=== PATIENT | female | born 1965 | race American Indian/Alaskan Native ===

== ENCOUNTER 2017-05-19 08:56 | Outpatient (CLI) | payer OTHER ==
--- NOTE | 2017-05-19 11:00 | Mammography Report ---
Bilateral mammogram and bilateral breast ultrasound: The patient presents with a persistent palpable nodule in the lateral left breast and her physician feeling bilateral lumps. A marker was placed over the area identified by the patient in the left breast. Routine views were obtained in addition to spot compression imaging over the marker region. Comparison is made to a prior exam in April 2016. There is a heterogeneously dense fibroglandular pattern which is generally symmetric in distribution bilaterally. Adjacent to the marker there is a somewhat ill-defined area of focal density less discrete than seen on prior exam. A couple of smaller partially circumscribed nodular densities aren't also identified adjacent to this larger finding. In the deep right breast there is a circumscribed and somewhat elongated density. This is better defined than seen on prior study. The breast pattern not otherwise changed bilaterally. Ultrasound imaging of the left breast demonstrates a dominant echolucent well-defined mass in the 3:30 position 6 initially the nipple consistent with the palpable finding. Adjacent to this are 2 smaller echolucent masses measuring under 1 cm each. In the 1:00 there is also a 6 mm echolucent mass. No solid masses. In the right breast 6:00 there is an elongated echolucent mass measuring 12 mm. No solid masses. CAD used. Impressions: 1. Multiple left breast cysts the largest of which corresponds to palpable mammogram finding but smaller than on prior exam in 2016. No new masses. No solid masses identified. 2. Right breast cyst better defined on mammography than on prior study. No solid masses identified. Recommendations: Annual mammogram followup. BI-RADS CATEGORY: 2 = Benign ACR BI-RADS MAMMOGRAPHIC CODES: 0 = Needs additional imaging evaluation; 1 = Negative; 2 = Benign; 3 = Probably benign; 4 = Suspicious; 5 = Malignant; 6 = Known biopsy-proven malignancy COMMENT: 1. Dense breast tissue, i.e., adenosis, fibrocystic changes, etc., may obscure an underlying neoplasm. 2. Approximately 10% of cancers are not detected with mammography. 3. A negative mammography report should not delay biopsy if a clinically suspicious mass is present.
== END 2017-05-19 08:57 | disposition home or self-care (01) ==
LOC: MAMMO 08:56
PROVIDERS: ATTEND Obstetrics & Gynecology Gynecology
DX: N60.01 Solitary cyst of right breast (principal); N60.02 Solitary cyst of left breast; N63 Unspecified lump in breast
CPT/HCPCS: 76642; G0204; 77066

== ENCOUNTER 2017-06-21 07:43 | Outpatient (CLI) | payer OTHER ==
--- NOTE | 2017-06-21 09:38 | Procedure Note ---
Date of procedure: 06/21/17 Pre-op diagnosis: lt. breast mass Post-op diagnosis: same Procedure: u/s guided asp/bx Findings: no fluid, solid Anesthesia: local Surgeon: KOBY PITTS Estimated blood loss: none Pathology: list Specimen disposition: to lab (lt breast tissue) Condition: stable Disposition: same day
--- NOTE | 2017-06-21 09:38 | History and Physical Report ---
History of Present Illness Date of examination: 06/21/17 Chief complaint: painful mass 3:00 Medications and Allergies Allergies Allergy/AdvReac Type Severity Reaction Status Date / Time Sulfa (Sulfonamide Allergy Itching Unverified 06/21/17 07:44 Antibiotics)
--- NOTE | 2017-06-21 11:30 | Ultrasound Report ---
Ultrasound guided left breast aspiration/biopsy, marker placement, left mammogram: The patient presents with a history of painful mass identified in the lateral left breast. Prior ultrasound demonstrated what appeared to be a dominant cyst in this region. Multiple smaller hypoechoic/cysts noted. The skin was cleansed and local anesthesia applied. Under ultrasound guidance a 21-gauge needle into the lesion with minimal withdrawal of thick appearing fluid. An 18-gauge needle was then utilized with no additional production of fluid. The nodule became somewhat more hypoechoic with slight reduction in size. Additional local anesthesia was applied. A 13-gauge sheath was then introduced through which a 14-gauge disposable barred biopsy spring-loaded guide was used to take several sections through the lesion. A marker was left in place and ultrasound guidance. The entrance site was bandaged. A followup two-view mammogram confirmed positioning of the marker. The marker is consistent with her palpable discomfort based on her May 19 mammogram. There were no procedure complications however the patient was quite tender and uncomfortable prior to and following the procedure. Followup instructions were verbally given to the patient.
== END 2017-06-21 07:44 | disposition home or self-care (01) ==
LOC: US 07:43
PROVIDERS: ATTEND Obstetrics & Gynecology Gynecology
DX: N60.02 Solitary cyst of left breast (principal); N63.20 Unspecified lump in the left breast, unspecified quadrant
CPT/HCPCS: 19083; 88305; G0206

== ENCOUNTER 2017-07-22 19:43 | Emergency (ER) | payer OTHER ==
[2017-07-22] MEDS ORDERED: MOTRIN PO ONE (20:49)
[2017-07-22] MEDS ORDERED: TYLENOL #3 PO ONE (20:58)
--- NOTE | 2017-07-22 20:58 | Emergency Department Report ---
- General Chief Complaint: Upper Respiratory Infection Stated Complaint: SOB; BODYACHES Time Seen by Provider: 07/22/17 20:38 Source: patient Mode of arrival: Ambulatory Limitations: No Limitations - History of Present Illness Initial Comments: 51-year-old female past medical history hysterectomy presents with complaint of 3 days of worsening cough. Patient also complaining of some body aches runny nose and some sore throat. Patient is awake alert and oriented 3 no audible wheezing stridor or rhonchi. No retractions. Patient states she may have been exposed to someone who was sick with a cold recently. Patient states that cough is productive of greenish yellow sputum. States she was taking NyQuil and DayQuil with minimal relief of her symptoms. denies being a smoker.. MD Complaint: fever, cough Onset/Timin -: days(s) Severity: moderate Consistency: intermittent Improves With: OTC cold medicine Associated Symptoms: cough Treatments Prior to Arrival: none - Related Data Previous Rx's Medication Instructions Recorded Last Taken Type ALBUTEROL Inhaler [ProAir HFA 2 puff IH QID PRN #1 inhalation 07/22/17 Unknown Rx Inhaler] Azithromycin [Zithromax Z-ANDREA] 250 mg PO QDAY #6 tablet 07/22/17 Unknown Rx Codeine Sulfate 15 mg PO Q4H PRN #4 tablet 07/22/17 Unknown Rx Naproxen 250 mg PO BID PRN #30 tablet 07/22/17 Unknown Rx Allergies Allergy/AdvReac Type Severity Reaction Status Date / Time Sulfa (Sulfonamide Allergy Itching Verified 07/22/17 21:16 Antibiotics) ED Review of Systems ROS: Stated complaint: SOB; BODYACHES Other details as noted in HPI Constitutional: denies: chills, fever Eyes: denies: eye pain, eye discharge, vision change ENT: denies: ear pain, throat pain Respiratory: cough. denies: shortness of breath, wheezing Cardiovascular: denies: chest pain, palpitations Endocrine: no symptoms reported Gastrointestinal: denies: abdominal pain, nausea, diarrhea Genitourinary: denies: urgency, dysuria, discharge Musculoskeletal: denies: back pain, joint swelling, arthralgia Skin: denies: rash, lesions Neurological: denies: headache, weakness, paresthesias Psychiatric: denies: anxiety, depression Hematological/Lymphatic: denies: easy bleeding, easy bruising ED Past Medical Hx - Past Medical History Previous Medical History?: No - Surgical History Past Surgical History?: Yes Additional Surgical History: hysterectomy - Social History Smoking Status: Never Smoker Substance Use Type: None - Medications Home Medications: Home Medications Medication Instructions Recorded Confirmed Last Taken Type ALBUTEROL Inhaler [ProAir HFA 2 puff IH QID PRN #1 inhalation 07/22/17 Unknown Rx Inhaler] Azithromycin [Zithromax Z-ANDREA] 250 mg PO QDAY #6 tablet 07/22/17 Unknown Rx Codeine Sulfate 15 mg PO Q4H PRN #4 tablet 07/22/17 Unknown Rx Naproxen 250 mg PO BID PRN #30 tablet 07/22/17 Unknown Rx ED Physical Exam - General Limitations: No Limitations General appearance: alert, in no apparent distress - Head Head exam: Present: atraumatic, normocephalic - Eye Eye exam: Present: normal appearance, PERRL, EOMI - ENT ENT exam: Present: mucous membranes moist - Expanded ENT Exam Expanded Teeth exam: Present: normal inspection Throat exam: Positive: tonsillar erythema (minimal erythema and no [employer] no exudates bilaterally) - Neck Neck exam: Present: normal inspection, full ROM - Respiratory Respiratory exam: Present: normal lung sounds bilaterally. Absent: respiratory distress - Cardiovascular Cardiovascular Exam: Present: regular rate, normal rhythm. Absent: systolic murmur, diastolic murmur, rubs, gallop - GI/Abdominal GI/Abdominal exam: Present: soft, normal bowel sounds - Extremities Exam Extremities exam: Present: normal inspection - Back Exam Back exam: Present: normal inspection - Neurological Exam Neurological exam: Present: alert, oriented X3 - Psychiatric Psychiatric exam: Present: normal affect, normal mood - Skin Skin exam: Present: warm, dry, intact, normal color. Absent: rash ED Course Vital Signs 07/22/17 07/22/17 07/22/17 19:49 21:16 21:17 Temperature 98 F Pulse Rate 82 Respiratory 20 18 18 Rate Blood Pressure 131/74 O2 Sat by Pulse 97 Oximetry 07/22/17 22:15 Temperature 98.6 F Pulse Rate 71 Respiratory 18 Rate Blood Pressure 115/60 O2 Sat by Pulse 98 Oximetry ED Medical Decision Making - Medical Decision Making A/P: Viral syndrome, possible bronchitis 1-naproxen, albuterol inhaler, short course prednisone, Z-Andrea 2-follow-up with primary care doctor 3-as patient has productive cough with some moderate hyperinflation of lungs treat as bronchitis exacerbation 4- flu swab neg, cxr mild apical scarring, hyperinflation Critical care attestation.: If time is entered above; I have spent that time in minutes in the direct care of this critically ill patient, excluding procedure time. ED Disposition Clinical Impression: Upper respiratory infection Qualifiers: URI type: unspecified viral URI Qualified Code(s): J06.9 - Acute upper respiratory infection, unspecified Disposition: - TO HOME OR SELFCARE Is pt being admited?: No Does the pt Need Aspirin: No Condition: Stable Instructions: Upper Respiratory Infection (ED), Viral Syndrome (ED), Cold Symptoms (ED) Prescriptions: ALBUTEROL Inhaler [ProAir HFA Inhaler] 2 puff IH QID PRN #1 inhalation PRN Reason: Shortness Of Breath Azithromycin [Zithromax Z-ANDREA] 250 mg PO QDAY #6 tablet Codeine Sulfate 15 mg PO Q4H PRN #4 tablet PRN Reason: Cough Naproxen 250 mg PO BID PRN #30 tablet PRN Reason: Cough Referrals: YUMI MUSE MD [Staff Physician] - 3-5 Days [facility] [place] [Outside] - 3-5 Days [facility] [Outside] - 3-5 Days Forms: Work/School Release Form(ED) Time of Disposition: 22:17
--- NOTE | 2017-07-22 21:55 | XRay Report ---
FINAL REPORT PROCEDURE: XR CHEST ROUTINE 2V TECHNIQUE: Two views of the chest are obtained HISTORY: worsening cough COMPARISON: No prior studies are available for comparison. FINDINGS: There may be mild hyperinflation of the lungs. The heart is normal in size. There is no focal infiltrate, pneumothorax or pleural effusion. Mild scarring is seen in the lung apices. IMPRESSION: There may be mild hyperinflation of the lungs.
[2017-07-22 22:18] VITALS: BP 115/60
== END 2017-07-22 22:43 | disposition home or self-care (01) ==
LOC: ED 19:43
DX: J06.9 Acute upper respiratory infection, unspecified (principal); Z88.2 Allergy status to sulfonamides
CPT/HCPCS: 71020; 87400; 87491

== ENCOUNTER 2017-09-28 20:05 | Emergency (ER) | payer OTHER ==
[2017-09-28 20:15] VITALS: BP 119/68
[2017-09-28] MEDS ORDERED: TYLENOL PO ONE (20:16)
== END 2017-09-29 08:20 | disposition left against medical advice (07) ==
LOC: ED 20:05
DX: J11.1 Influenza due to unidentified influenza virus with other respiratory manifestations (principal); Z53.21 Procedure and treatment not carried out due to patient leaving prior to being seen by health care provider
CPT/HCPCS: 87116; 87400; 87430

== ENCOUNTER 2017-10-01 02:32 | Emergency (ER) | payer OTHER ==
[2017-10-01] MEDS ORDERED: MOTRIN ONE (02:53)
[2017-10-01] MEDS ORDERED: MOTRIN PO ONE (03:02)
--- NOTE | 2017-10-01 07:46 | XRay Report ---
FINAL REPORT EXAM: XR CHEST ROUTINE 2V HISTORY: cough TECHNIQUE: PA and lateral chest radiographs PRIORS: 07/22/2017 FINDINGS: No mediastinal shift. Cardiac silhouette is not enlarged. No pneumothorax, effusion, or focal pulmonary opacity. No acute skeletal finding. IMPRESSION: No focal pulmonary opacity.
--- NOTE | 2017-10-01 08:22 | Emergency Department Report ---
- General Chief Complaint: Upper Respiratory Infection Stated Complaint: FLU SYMPTOMS Time Seen by Provider: 10/01/17 07:02 Source: patient Mode of arrival: Ambulatory Limitations: No Limitations - History of Present Illness Initial Comments: This is a 52-year-old female nontoxic, well nourished in appearance, no acute signs of distress presents to the ED with c/o of fever, chills, nonproductive cough, and body aches 4 days. Patient stated she was seen in urgent care and was diagnosed with the flu has been prescribed Tamiflu, Phenergan and Tylenol. Patient stated that symptoms has not yet subsided and patient still has body aches. Patient denies chest pain, shortness of breath, nausea, vomiting, headache, stiff neck, blurry vision, abdominal pain, back pain, numbness or tingling. Patient states allergies to sulfa. Past medical history includes hysterectomy. Patient denies any recent travels, long car rides, or recent hospital stays. Patient denies any calf pain or calf tenderness. Patient denies hemoptysis. MD Complaint: fever, cough, other (body aches) -: days(s) (4) Severity: mild Severity scale (0 -10): 8 Quality: aching Consistency: constant Improves With: nothing Worsens With: nothing Associated Symptoms: fever, chills, cough. denies: myalgias, diaphoresis, headache, rhinorrhea, nasal congestion, sore throat, stiff neck, chest pain, shortness of breath, abdominal pain, nausea, vomiting, diarrhea, dysuria, rash, confusion, right sweats, weight loss, epistaxis, hoarseness, ear pain Treatments Prior to Arrival: none - Related Data Previous Rx's Medication Instructions Recorded Last Taken Type ALBUTEROL Inhaler [ProAir HFA 2 puff IH QID PRN #1 inhalation 07/22/17 Unknown Rx Inhaler] Azithromycin [Zithromax Z-ANDREA] 250 mg PO QDAY #6 tablet 07/22/17 Unknown Rx Naproxen 250 mg PO BID PRN #30 tablet 07/22/17 Unknown Rx Acetaminophen/Codeine [Tylenol 1 tab PO Q6H PRN #4 tab 07/23/17 Unknown Rx /Codeine # 3 tab] Allergies Allergy/AdvReac Type Severity Reaction Status Date / Time Sulfa (Sulfonamide Allergy Itching Verified 07/22/17 21:16 Antibiotics) ED Review of Systems ROS: Stated complaint: FLU SYMPTOMS Other details as noted in HPI Constitutional: see HPI, chills, fever Eyes: denies: eye pain, eye discharge, vision change ENT: denies: ear pain, throat pain Respiratory: cough. denies: shortness of breath, wheezing Cardiovascular: denies: chest pain, palpitations Endocrine: no symptoms reported Gastrointestinal: denies: abdominal pain, nausea, diarrhea Genitourinary: denies: urgency, dysuria, discharge Musculoskeletal: denies: back pain, joint swelling, arthralgia Skin: denies: rash, lesions Neurological: denies: headache, weakness, paresthesias Psychiatric: denies: anxiety, depression Hematological/Lymphatic: denies: easy bleeding, easy bruising ED Past Medical Hx - Past Medical History Previous Medical History?: No - Surgical History Past Surgical History?: Yes Additional Surgical History: hysterectomy - Social History Smoking Status: Never Smoker Substance Use Type: None - Medications Home Medications: Home Medications Medication Instructions Recorded Confirmed Last Taken Type ALBUTEROL Inhaler [ProAir HFA 2 puff IH QID PRN #1 inhalation 07/22/17 Unknown Rx Inhaler] Azithromycin [Zithromax Z-ANDREA] 250 mg PO QDAY #6 tablet 07/22/17 Unknown Rx Naproxen 250 mg PO BID PRN #30 tablet 07/22/17 Unknown Rx Acetaminophen/Codeine [Tylenol 1 tab PO Q6H PRN #4 tab 07/23/17 Unknown Rx /Codeine # 3 tab] ED Physical Exam - General Limitations: No Limitations General appearance: alert, in no apparent distress - Head Head exam: Present: atraumatic, normocephalic, normal inspection - Eye Eye exam: Present: normal appearance, PERRL, EOMI. Absent: scleral icterus, conjunctival injection, nystagmus, periorbital swelling, periorbital tenderness Pupils: Present: normal accommodation - ENT ENT exam: Present: normal exam, normal orophraynx, mucous membranes moist, TM's normal bilaterally, normal external ear exam - Neck Neck exam: Present: normal inspection, full ROM. Absent: tenderness, meningismus, lymphadenopathy, thyromegaly - Respiratory Respiratory exam: Present: normal lung sounds bilaterally. Absent: respiratory distress, wheezes, rales, rhonchi, stridor, chest wall tenderness, accessory muscle use, decreased breath sounds, prolonged expiratory - Cardiovascular Cardiovascular Exam: Present: regular rate, normal rhythm, normal heart sounds. Absent: irregular rhythm, systolic murmur, diastolic murmur, rubs, gallop - GI/Abdominal GI/Abdominal exam: Present: soft, normal bowel sounds. Absent: distended, tenderness, guarding, rebound, rigid, diminished bowel sounds - Rectal Rectal exam: Present: deferred - Extremities Exam Extremities exam: Present: normal inspection, full ROM, normal capillary refill. Absent: tenderness, pedal edema, joint swelling, calf tenderness - Back Exam Back exam: Present: normal inspection, full ROM. Absent: tenderness, CVA tenderness (R), CVA tenderness (L), muscle spasm, paraspinal tenderness, vertebral tenderness, rash noted - Neurological Exam Neurological exam: Present: alert, oriented X3, CN II-XII intact, normal gait, reflexes normal - Psychiatric Psychiatric exam: Present: normal affect, normal mood - Skin Skin exam: Present: warm, dry, intact, normal color. Absent: rash ED Course Vital Signs 10/01/17 10/01/17 02:58 08:34 Temperature 101.0 F H 98.1 F Pulse Rate 88 69 Respiratory 16 Rate Blood Pressure 113/64 Blood Pressure 107/48 [Right] O2 Sat by Pulse 99 Oximetry - Reevaluation(s) Reevaluation #1: 10/01/17 08:29 Patient is speaking in full sentences with no signs of distress noted. ED Medical Decision Making - Medical Decision Making This is a 52-year-old female that presents with influenza B. Patient is stable and was examined by me. Chest x-ray has been obtained and dictated by radiologist with normal exam. Patient notified of x-ray results were noted by the patient. Influenza swab obtained and positive B. Due to patient having a positive influenza swab as she stated the urgent care I instructed patient to continue taking Tamiflu, Phenergan and Tylenol as prescribed. I instruct the patient that symptoms that she is developing is related to the flu which can last up to 10 days. Patient was PO rehydrated in the ED and tolerated well with in signs of distress. Patient was instructed to rest and increase hydration at home. Patient received Motrin in the ED. Vital signs stable and patient is not febrile and normal heart rate. Patient was instructed Follow-up with a primary care doctor in 3-5 days or if symptoms worsen and continue return to emergency room as soon as possible. At time time of discharge, the patient does not seem toxic or ill in appearance. No acute signs of distress noted. Patient agrees to discharge treatment plan of care. No further questions noted by the patient. Critical care attestation.: If time is entered above; I have spent that time in minutes in the direct care of this critically ill patient, excluding procedure time. ED Disposition Clinical Impression: Influenza Disposition: DC-01 TO HOME OR SELFCARE Is pt being admited?: No Does the pt Need Aspirin: No Condition: Stable Instructions: Fever in Adults (ED), Influenza (ED) Additional Instructions: Follow-up with a primary care doctor in 3-5 days or if symptoms worsen and continue return to emergency room as soon as possible. Increase rest and hydration at home. Continue taking medications as prescribed and directed you in the urgent care Referrals: SILVA OKEEFE MD [Primary Care Provider] - 3-5 Days PRIMARY CARE, [Referring] - 3-5 Days [place] [Outside] - 3-5 Days [facility] [Outside] - 3-5 Days Forms: Work/School Release Form(ED)
[2017-10-01 08:35] VITALS: BP 107/48
== END 2017-10-01 08:42 | disposition home or self-care (01) ==
LOC: ED 02:32
DX: Z90.710 Acquired absence of both cervix and uterus (principal); J10.1 Influenza due to other identified influenza virus with other respiratory manifestations; Z88.2 Allergy status to sulfonamides
CPT/HCPCS: 71046; 87400; 99283

== ENCOUNTER 2018-02-16 08:22 | Outpatient (CLI) | payer OTHER ==
--- NOTE | 2018-02-16 16:19 | Ultrasound Report ---
LEFT DIGITAL DIAGNOSTIC MAMMOGRAM with CAD and LEFT BREAST ULTRASOUND: 02/16/18 08:22:00 CLINICAL: Followup after benign cyst aspiration. She had a benign cyst aspiration 06/21/17. COMPARISON:05/19/17 mammogram and ultrasound FINDINGS: The breast is mostly fatty with a few low-density asymmetries which persists with spot compression. An upper outer posterior biopsy clip correlates with the site of the recent cyst aspiration. No architectural distortion or suspicious calcifications. Ultrasound of the left breast (including all four quadrants and the retroareolar area) was performed and demonstrated a few benign cysts and no solid mass. A retroareolar cyst at 5 o'clock measures 9 x 5 x 7 mm and correlates with the mammographic density. A cyst at 7 o'clock 4 cm from the nipple measures 4 x 3 x 3 mm and correlates with the mammographic density. IMPRESSION: Benign cysts and no suspicious finding. BI-RADS CATEGORY: 2 - - Benign RECOMMENDATION: Return to routine mammographic screening. ACR BI-RADS MAMMOGRAPHIC CODES: 0 = Needs additional imaging evaluation; 1 = Negative; 2 = Benign; 3 = Probably benign; 4 = Suspicious; 5 = Malignant; 6 = Known biopsy-proven malignancy COMMENT: 1. Dense breast tissue, i.e., adenosis, fibrocystic changes, etc., may obscure an underlying neoplasm. 2. Approximately 10% of cancers are not detected with mammography. 3. A negative mammography report should not delay biopsy if a clinically suspicious mass is present. COMMENT: Patient follow-up letters are generated by our [employer] application.
== END 2018-02-16 08:23 | disposition home or self-care (01) ==
LOC: MAMMO 08:22
PROVIDERS: ATTEND Obstetrics & Gynecology Gynecology
DX: N60.02 Solitary cyst of left breast (principal); Z90.710 Acquired absence of both cervix and uterus

== ENCOUNTER 2018-04-11 15:24 | Outpatient (CLI) | payer OTHER | END 2018-04-11 15:25 | disposition home or self-care (01) | LOC: LABHHL 15:24 | PROVIDERS: ATTEND Surgery | DX: N60.01 Solitary cyst of right breast (principal); Z88.1 Allergy status to other antibiotic agents; Z90.710 Acquired absence of both cervix and uterus | CPT/HCPCS: 88112 ==

== ENCOUNTER 2019-01-03 07:11 | Day surgery (SDC) | payer OTHER ==
--- NOTE | 2019-01-03 11:15 | Ultrasound Report ---
ULTRASOUND SOFT TISSUE HEAD AND NECK History: Midline neck mass. Findings: Targeted grayscale ultrasound was performed in the neck at the site of the previous palpable nodule. The nodule had resolved per the patient. There is no evidence for mass or cyst needing ultrasound guided fine needle aspiration. Ultrasound FNA was canceled. Impression: Normal exam.
== END 2019-01-03 07:12 | disposition home or self-care (01) ==
LOC: CATHLABREC 07:11 → EDSTATUS 07:30
PROVIDERS: ATTEND Otolaryngology
DX: R22.1 Localized swelling, mass and lump, neck (principal); Z79.899 Other long term (current) drug therapy; Z88.2 Allergy status to sulfonamides; Z90.710 Acquired absence of both cervix and uterus
CPT/HCPCS: 76536

== ENCOUNTER 2021-10-26 08:58 | Outpatient (CLI) | payer OTHER ==
--- NOTE | 2021-10-26 12:51 | Ultrasound Report ---
BILATERAL DIGITAL DIAGNOSTIC MAMMOGRAM WITH CAD CONVENTIONAL, 10/26/2021 RIGHT LIMITED BREAST ULTRASOUND CLINICAL INFORMATION / INDICATION: Unspecified lump in right breast, subareolar. Pain in upper outer right breast. TECHNIQUE: Digital bilateral mammographic imaging was performed. Spot compression views were obtained . Limited ultrasound was performed. This examination was interpreted with the benefit of Computer-Aid ed Detection (CAD) analysis. COMPARISON: 06/26/2020 FINDINGS: Breast Density: There are scattered areas of fibroglandular density. MAMMOGRAPHIC FINDINGS: No dominant mass, suspicious calcifications, or architectural distortion in th e left breast. Stable postbiopsy changes are seen in the 3:00 left breast posteriorly. Stable nodular ity is seen along the upper outer right breast posteriorly measuring up to 1.8 cm. No other significa nt abnormality is identified. ULTRASOUND FINDINGS: Targeted ultrasound evaluation was performed of the area of interest. A cyst w ithout suspicious features is seen in the 10:00 right breast 8 cm from the nipple measuring 8.7 x 5.1 x 6.9 mm. No other significant abnormality is identified. IMPRESSION: No mammographic or sonographic evidence of malignancy. Follow up recommendation: Routine yearly BI-RADS Category 2: BENIGN. A "normal" or negative report should not discourage follow up or biopsy of a clinically significant f inding. A written summary of these findings will be mailed to the patient. The patient will be entered into a mammography reporting system which will generate a reminder letter for the patient's next appointmen t at the appropriate interval. According to the [employer], yearly mammograms are recommended starting at age 40 and continuing as long as a woman is in good health. Breast MRI is recommended for women with an antolin roximately 20-25% or greater lifetime risk of breast cancer, including women with a strong family his tory of breast or ovarian cancer and women who have been treated for Hodgkin's disease. Signer Name: William Groves MD Signed: 10/26/2021 12:46 PM Workstation Name: [id number]
== END 2021-10-26 08:59 | disposition home or self-care (01) ==
LOC: SPVWC 08:58 → MAMMO 08:58 → SPVWC 08:59
PROVIDERS: ATTEND Surgery
DX: N60.01 Solitary cyst of right breast (principal); N63.41 Unspecified lump in right breast, subareolar
CPT/HCPCS: 77066